=== PATIENT | male | born 1995 | race Caucasian/White ===

== ENCOUNTER 2022-06-20 09:23 | Emergency (ER) | payer BC, OTHER ==
[2022-06-20] MEDS ORDERED: IBUPROFEN 400 MG TABLET (FP) PO ONE ×2 (09:37→09:49)
[2022-06-20 09:46] VITALS: BP 148/77; PULSE 92; RESP 18; TEMP 97.4; BMI 32.1
[2022-06-20] MEDS ORDERED: ACETAMINOPHEN 325 MG TABLET (FP) PO ONE (10:20)
[2022-06-20] MEDS ORDERED: ACETAMINOPHEN 325 MG TABLET (FP) ONE ×2 (10:36)
== END 2022-06-20 13:25 | disposition home or self-care (01) ==
LOC: FER 09:23
DX: S93.402A Sprain of unspecified ligament of left ankle, initial encounter (principal); X50.0XXA Overexertion from strenuous movement or load, initial encounter
CPT/HCPCS: 73610-TC-LT-FY; 73630-TC-LT; 99283-25